=== PATIENT | female | born 2000 | race African-American/Black ===

== ENCOUNTER 2019-08-01 14:49 | Observation (INO) | payer MEDICAID ==
[~2019-08-01] VITALS: Ht 154.9 cm; Wt 63.0 kg
== END 2019-08-01 20:43 | disposition home or self-care (01) ==
LOC: ER 14:49 → 8 EST LDRP 15:02
PROVIDERS: ADMIT Obstetrics & Gynecology; ATTEND Obstetrics & Gynecology
DX: O26.893 Other specified pregnancy related conditions, third trimester (principal); R10.9 Unspecified abdominal pain; Z3A.36 36 weeks gestation of pregnancy
CPT/HCPCS: 76805; 76810; 99284; G0378; 99281

== ENCOUNTER 2019-08-19 23:03 | Observation (INO) | payer MEDICAID ==
[~2019-08-19] VITALS: Ht 154.9 cm; Wt 62.6 kg
[2019-08-20] MEDS ORDERED: PNV11TAB5 PO (00:34)
[2019-08-20 02:18] LABS: CLARITY URINE CLOUDY (CLEAR); COLOR URINE YELLOW (YELLOW); KETONES URINE NEGATIVE (NEGATIVE); LEUKOCYTE ESTERASE URINE 3+ (NEGATIVE); NITRITE URINE NEGATIVE (NEGATIVE); OCCULT BLOOD URINE NEGATIVE (NEGATIVE); PROTEIN URINE TRACE (NEGATIVE); SPECIFIC GRAVITY URINE 1.012 (1.005-1.030)
== END 2019-08-20 06:06 | disposition home or self-care (01) ==
LOC: 8 EST LDRP 23:03
PROVIDERS: ADMIT Obstetrics & Gynecology; ATTEND Obstetrics & Gynecology
DX: O26.893 Other specified pregnancy related conditions, third trimester (principal); R10.9 Unspecified abdominal pain; Z3A.36 36 weeks gestation of pregnancy
CPT/HCPCS: 81003; 99281; G0378